=== PATIENT | female | born 1995 | race Caucasian/White ===

== ENCOUNTER 2019-08-16 05:02 | Observation (INO) | payer BC, MEDICAID ==
[~2019-08-16] VITALS: Ht 162.6 cm; Wt 86.2 kg
[2019-08-16] MEDS ORDERED: PREN-153 OR (06:03)
== END 2019-08-16 06:55 | disposition home or self-care (01) | DRG 566 ==
LOC: ER 05:02 → LDRP 05:10 → ER 05:11 → LDRP 06:55 → ER 06:55 → LDRP 06:55 → UNDOADMOB 06:55 → UNDODISOB 08-22 06:55
PROVIDERS: ADMIT Obstetrics & Gynecology; ATTEND Obstetrics & Gynecology
DX: O62.9 Abnormality of forces of labor, unspecified (principal); Z3A.00 Weeks of gestation of pregnancy not specified
CPT/HCPCS: 59025; 81002; G0378